=== PATIENT | female | born 2005 | race Caucasian/White ===

== ENCOUNTER 2024-05-02 19:38 | Emergency (ER) | payer MEDICAID ==
[~2024-05-02] VITALS: Ht 165.1 cm; Wt 59.0 kg
[2024-05-02 20:14] LABS: BASO % 0.3 % (0.0-1.0); EOS % 0.5 % (1.0-4.0); HEMATOCRIT 38.5 % (37.0-47.0); MEAN CELL VOLUME 89.5 fl (81.0-99.0); MEAN CORPUSCULAR HGB 31.4 pg (27.0-31.0); MEAN CORPUSCULAR HGB CONC 35.1 g/dl (33.0-37.0); MEAN PLATELET VOLUME 9.7 fl (9.6-12.3); MONO # 0.4 10*3/uL (0.1-1.0); MONO % 6.6 % (3.0-9.0); NEUT # 3.8 10*3/uL (2.3-7.9); NEUT % 60.5 % (47.0-73.0); PLATELET COUNT AUTOMATED 222 10*3/uL (130-400); RED CELL DISTRI WIDTH 11.9 % (0-14.5); WHITE BLOOD COUNT 6.2 10*3/uL (4.8-10.8)
[2024-05-02 20:35] LABS: ALKALINE PHOSPHATASE 45 U/L (46-116); BUN 9 mg/dl (9-23); CHLORIDE 107 mmol/L (98-107); POTASSIUM 3.8 mmol/L (3.4-5.1); SGPT/ALT 9 U/L (5-49); TOTAL PROTEIN 7.3 gm/dL (6.0-8.0)
[2024-05-02 20:50] LABS: BILIRUBIN Negative (Negative); BLOOD Negative (Negative); CLARITY Cloudy (Clear); COLOR Yellow (Yellow); GLUCOSE Negative (Negative); KETONE Trace (Negative); LEUKO ESTERASE Trace (Negative); NITRITE Negative (Negative)
[2024-05-02 20:59] LABS: BACTERIA 2+
== END 2024-05-02 21:15 | disposition home or self-care (01) ==
LOC: ED 19:38
PROVIDERS: Internal Medicine
DX: K59.00 Constipation, unspecified (principal); R14.1 Gas pain

== ENCOUNTER 2024-11-27 00:20 | Emergency (ER) | payer OTHER ==
[~2024-11-27] VITALS: Ht 165.1 cm; Wt 56.7 kg
[2024-11-27 01:26] LABS: BILIRUBIN Negative (Negative); BLOOD Negative (Negative); CLARITY Clear (Clear); COLOR Yellow (Yellow); KETONE Negative (Negative); LEUKO ESTERASE Negative (Negative); NITRITE Negative (Negative); PH 7.0 (4.5-8.0); SPECIFIC GRAVITY 1.010 (1.001-1.030); UROBILINOGEN 0.2 E.U./dl (0.0-1.0)
[2024-11-27 01:55] LABS: WBC 0-2 wbc/hpf (0-5)
== END 2024-11-27 02:20 | disposition home or self-care (01) ==
LOC: ED 00:20
PROVIDERS: Internal Medicine
DX: R10.32 Left lower quadrant pain (principal); R11.0 Nausea; R10.20 Pelvic and perineal pain unspecified side

== ENCOUNTER → 2025-02-04 | Outpatient (CLI) | payer OTHER | END | disposition home or self-care (01) | LOC: US 12:51 | PROVIDERS: ATTEND Obstetrics & Gynecology | DX: N83.202 Unspecified ovarian cyst, left side (principal); N85.4 Malposition of uterus; R10.20 Pelvic and perineal pain unspecified side ==